=== PATIENT | female | born 1955 | race Caucasian/White ===

== ENCOUNTER 2016-04-16 07:19 | Emergency (ER) | payer OTHER ==
[2016-04-16 07:43] VITALS: TEMP 98.4; BMI 23.4
[2016-04-16] MEDS ORDERED: DIPHTHERIA AND TETANUS (ADULT) 0.5 ML SYR IM ONE (08:17)
[2016-04-16] MEDS ORDERED: OXYCODONE HCL 5 MG TABLET PO STA ×2 (08:18→10:15)
--- NOTE | 2016-04-16 08:28 | EDPRACDOC ---
- General Chief Complaint: Fall Stated Complaint: FALL ( HEAD/ LEFT FLANK INJURY) Time Seen by Provider: 04/16/16 08:09 Information Source: Patient - History of Present Illness Onset: OFFICE ASST HPI: PT PRESENTS AFTER MECHANICAL FALL AT HOME. HIT HER LEFT ARM, LEFT FOREHEAD/BROW , AND RIGHT KNEE WITH PAIN AT THESE LOCATIONS. LAST TETANUS 7+ YEARS. Pain Severity: Reports: Moderate Injuries/Pain Location: Reports: face (LEFT EYEBROW), upper extremity (LEFT UPPER ARM), lower extremity (RIGHT ANTERIOR KNEE) Reason for Fall: Reports: tripped Loss of Consciousness: no loss of consciousness Associated Symptoms (Fall): Reports: headache. Denies: nausea/vomiting Allergies/Adverse Reactions: Allergies morphine Allergy (Verified 04/16/16 07:43) Anxiety Home Medications: Ambulatory Orders Clonazepam 0.5 mg PO QID PRN 04/16/16 Hydrochlorothiazide 25 mg PO DAILY 04/16/16 Lansoprazole [Prevacid] 30 mg PO DAILY 04/16/16 Oxycodone HCl [Roxicodone] 5 mg PO Q4-6H PRN #30 tablet 04/16/16 ED Past Medical History - History Reviewed Yes Nurses notes reviewed and agree except as marked - Patient Medical History Cardiac History: Reports: Hypertension GI/ History: Reports: Gastroesophageal Reflux Psychological History: Denies: Depression Systemic History: Denies: Cancer Surgical History: Reports: Cholecystectomy, Hysterectomy - Social Medical History Smoking Status: Never smoker Lives With: Significant Other Lives In: Home EDM Review of Systems - Review of Systems ROS Negative Except as Marked: Yes All systems reviewed and were negative except as marked Constitutional: negative: Fever Respiratory: negative: Shortness of Breath Cardiovascular: negative: Chest Pain Gastrointestinal: negative: Nausea, Pain, Vomiting Neurological: Headache Musculoskeletal: Arm (LEFT PROXIMAL UPPER ARM.), Knee (RIGHT ANTERIOR KNEE) Integumentary: Wound (LEFT EYEBROW LACERATION) - Physical Exam Constitutional: Alert Oriented to: Time, Person, Place Last recorded Vital Signs: Last Vital Signs Temp 98.4 F 04/16/16 07:40 Pulse 86 04/16/16 07:40 Resp 18 04/16/16 07:40 BP 154/72 04/16/16 07:40 Pulse Ox 100 04/16/16 07:40 Oxygen Pulse Oxygen Saturation 100 O2 Device Oxygen Flow Rate Fraction of Inspired Oxygen ( FIO2) - HEENT Head: Laceration (HEMOSTATIC LACERATION TO LEFT LATERAL EYEBROW.), Swelling ( LEFT EYEBROW.). negative: Deformity Eye Exam: negative: Conjunctival Injection, Pale Conjunctiva Oropharynx: negative: Membranes Dry Nose: negative: Congestion, Discharge Neck: negative: Limited ROM - Respiratory/Cardiovascular Respiratory: Normal - CTA. negative: Accessory Muscle Use, Diminished, Tachypnea Cardiovascular: negative: Bradycardia, Tachycardia, Irregular - Musculoskeletal Extremities: Radial Pulse (PALPABLE) - Integumentary Skin: Warm, Dry. negative: Rash - Neurologic Memory Impaired: Normal Motor Function: Normal Mood Description: Anxious, Appropriate Thought: Coherent Perception: Normal ED Injury/Fall Exam - Physical Exam Extremity Exam: other (TENDERNESS TO PALPATION OF LEFT PROXIMAL HUMERUS & RIGHT ANTERIOR KNEE) - Bicknell Coma Score Best Eye Response (Ross): (4) open spontaneously Best Verbal Response (Bicknell): (5) oriented Best Motor Response (Ross): (6) obeys commands Bicknell Total: 15 ED Procedures - Suture/Laceration Suture #1 Left Lateral Face Wound Length (cm): 1 Wound's Depth, Shape: linear Wound Explored: clean Betadine Prep?: No Wound Repaired With: Dermabond Layer Closure?: No Decision Time to Discharge: 10:15 - Departure Yes I personally saw and evaluated the patient. Disposition: Home Condition: Stable Final Diagnosis: Proximal humerus fracture Qualifiers: Encounter type: initial encounter Fracture type: closed Fracture morphology: other fracture Fracture alignment: nondisplaced Laterality: left Qualified Code( s): S42.295A - Other nondisplaced fracture of upper end of left humerus, initial encounter for closed fracture Laceration of eyebrow Qualifiers: Encounter type: initial encounter Laterality: left Qualified Code(s): S01.112A - Laceration without foreign body of left eyelid and periocular area, initial encounter Contusion of right knee Qualifiers: Encounter type: initial encounter Qualified Code(s): S80.01XA - Contusion of right knee, initial encounter Instructions: RICE: Routine Care for Injuries, Arm Fracture in Adults (ED), Skin Adhesive Care (ED) Education/Counseling Given To: Patient, Significant Other Education/Counseling Given Regarding: Diagnosis, Treatment, Prognosis, Follow Up Referrals: None,No Provider [Primary Care Provider] - One Week Liang Pryor MD [Staff Physician] - Call for Appointment Prescriptions: New Oxycodone HCl [Roxicodone] 5 mg PO Q4-6H PRN #30 tablet PRN Reason: Breakthrough Pain Continue Lansoprazole [Prevacid] 30 mg PO DAILY Hydrochlorothiazide 25 mg PO DAILY Clonazepam 0.5 mg PO QID PRN PRN Reason: Anxiety Additional Instructions: NON-WEIGHT BEARING LEFT ARM. PLEASE CALL ORTHOPEDICS FOR FURTHER CARE OF YOUR FRACTURE.
--- NOTE | 2016-04-16 08:52 | DIRPT ---
CLINICAL DATA: Status post fall today at home striking the shoulder knee and head ; small abrasion distal to the patella. EXAM: RIGHT KNEE - COMPLETE 4+ VIEW COMPARISON: None in PACs FINDINGS: The bones are mildly osteopenic. There is no acute fracture nor dislocation. The joint spaces are preserved. There is beaking of the tibial spines. There is a small spur arising from the superior articular margin of the patella. There is no joint effusion. IMPRESSION: No acute fracture nor dislocation is observed. There are mild degenerative changes. Electronically Signed By: Brian Tafoya M.D. On: 04/16/2016 08:49
--- NOTE | 2016-04-16 08:52 | DIRPT ---
CLINICAL DATA: Fall. Initial evaluation . EXAM: LEFT HUMERUS - 2+ VIEW COMPARISON: No prior. FINDINGS: Comminuted fracture of the proximal left humerus noted. Associated fracture of the greater and lesser tuberosities noted. Mild displacement. IMPRESSION: Comminuted fracture of the proximal left humerus as described above. Electronically Signed By: Dhaval Hemphill On: 04/16/2016 08:49
--- NOTE | 2016-04-16 09:20 | DIRPT ---
CLINICAL DATA: 60-year-old who tripped over a stack of wood at his home earlier today, striking the left side of his head on the garage door. Laceration to the left supraorbital region. Initial encounter. EXAM: CT HEAD WITHOUT CONTRAST TECHNIQUE: Contiguous axial images were obtained from the base of the skull through the vertex without intravenous contrast. COMPARISON: None. FINDINGS: Ventricular system normal in size and appearance for age. No mass lesion. No acute hemorrhage or hematoma. Small right frontal subdural hygroma with mild mass effect and slight shift of the midline to the left by approximately 2 mm. No evidence of subdural hematoma. No focal brain parenchymal abnormality. Laceration in the left supraorbital region with gas bubbles in the subcutaneous tissues. Small hematoma/ecchymosis in the left supraorbital region. No skull fracture or other focal osseous abnormality involving the skull. Visualized paranasal sinuses, bilateral mastoid air cells and bilateral middle ear cavities well-aerated. Left mastoid air cells underpneumatized. Mild bilateral carotid siphon atherosclerosis. IMPRESSION: 1. No acute intracranial abnormality. 2. Small right frontal subdural hygroma causing mild mass effect and insignificant midline shift to the left of approximately 2 mm. 3. Left supraorbital laceration associated with a small hematoma/ecchymosis. No underlying fracture. Electronically Signed By: Dhaval Adame M.D. On: 04/16/2016 09:18
[2016-04-16] MEDS ORDERED: 2-OCTYL CYANOACRYLATE PEN TOP ONE (09:48)
[2016-04-16 10:24] VITALS: BP 150/76; PULSE 87
== END 2016-04-16 10:37 | disposition home or self-care (01) ==
LOC: ED 07:19
DX: S42.295A Other nondisplaced fracture of upper end of left humerus, initial encounter for closed fracture (principal); S01.112A Laceration without foreign body of left eyelid and periocular area, initial encounter; S80.01XA Contusion of right knee, initial encounter; W01.0XXA Fall on same level from slipping, tripping and stumbling without subsequent striking against object, initial encounter; Z23 Encounter for immunization; I10 Essential (primary) hypertension; K21.9 Gastro-esophageal reflux disease without esophagitis; Z79.899 Other long term (current) drug therapy; R51 Headache
CPT/HCPCS: 12011; 70450; 73060; 73564; 90471; 90714; 99283; J3490